=== PATIENT | female | born 2005 | race Two or more races ===

== ENCOUNTER 2024-06-02 18:45 | Emergency (ER) | payer OTHER ==
[~2024-06-02] VITALS: Ht 157.5 cm; Wt 591.9 kg
[2024-06-02] MEDS ORDERED: ACETAMINOPHEN WITH CODEINE 1 UDTAB TABLET PO ONE (21:15)
== END 2024-06-02 23:11 | disposition home or self-care (01) ==
LOC: ER 18:46
DX: R10.2 Pelvic and perineal pain (principal)